=== PATIENT | female | born 1995 | race African-American/Black ===

== ENCOUNTER 2018-05-14 11:35 | Emergency (ER) | payer OTHER, SELFPAY ==
[2018-05-14 12:06] LABS: Bilirubin Negative (Negative); Blood, Urine Large (Negative); Clarity CLOUDY (Clear); Glucose, Urine (Dipstick) Negative (Negative); Leukocyte Large (Negative); Nitrite Negative (Negative); Protein, Urine (Dipstick) 30 mg/dL (Neg-Trace); Specific Gravity, Urine 1.021 (1.002-1.036); Urobilinogen 0.2 mg/dL (0.2-1.0)
[2018-05-14 12:08] LABS: Bacteria/HPF None Seen HPF (None Seen); Hyaline Casts/LPF 0-3 HYALINE CAST LPF (0-3 Hyaline); Pathc Cast-AUWi Flag 0.29 (0-2.49); Pregnancy Test - Urine (BHCG) Negative (Negative); Pregu Control Background? CLEAR/WHITE (CLR/WHITE); Pregu Control Bar Appear? YES (CONTROL BAR); RBC/HPF GREATER THAN 50-TNTC HPF (0-3); Specific Gravity 1.021 (1.002-1.036); Squamous Epithelial 0-3 HPF (0-3)
[2018-05-14] MEDS ORDERED: cefTRIAXone\\ROCEPHIN 250 MG VIAL ONE (13:12)
[2018-05-14] MEDS ORDERED: Azithromycin 250 MG TAB ONE (13:12)
[2018-05-14] MEDS ORDERED: Lidocaine 1% PF 5 ML VIAL ONE (13:13)
[2018-05-18 00:26] LABS: Chlamydia by PCR Not Detected (NotDetected); GC by PCR DETECTED (NotDetected)
== END 2018-05-14 13:34 | disposition home or self-care (01) ==
LOC: ERS 11:35
DX: N39.0 Urinary tract infection, site not specified (principal)
CPT/HCPCS: 81003; 81015; 81025; 87480; 87491; 87510; 87591; 87660; 96372; J0696; J2001

== ENCOUNTER 2018-06-03 16:15 | Emergency (ER) | payer SELFPAY ==
[2018-06-03] MEDS ORDERED: Azithromycin 250 MG TAB ONE (17:56)
[2018-06-03] MEDS ORDERED: cefTRIAXone\\ROCEPHIN 250 MG VIAL ONE (17:56)
[2018-06-03] MEDS ORDERED: Lidocaine 1% PF 5 ML VIAL ONE (17:57)
[2018-06-03 18:15] LABS: Bilirubin Negative (Negative); Blood, Urine Moderate (Negative); Clarity CLEAR (Clear); Glucose, Urine (Dipstick) Negative (Negative); Leukocyte Small (Negative); Nitrite Negative (Negative); Protein, Urine (Dipstick) Negative (Neg-Trace); Specific Gravity, Urine 1.022 (1.002-1.036); Urobilinogen 0.2 mg/dL (0.2-1.0)
[2018-06-03 18:17] LABS: Bacteria/HPF None Seen HPF (None Seen); Hyaline Casts/LPF 0-3 HYALINE CAST LPF (0-3 Hyaline); Pregnancy Test - Urine (BHCG) Negative (Negative); Pregu Control Background? CLEAR/WHITE (CLR/WHITE); Pregu Control Bar Appear? YES (CONTROL BAR); Specific Gravity 1.022 (1.002-1.036); Squamous Epithelial 0-3 HPF (0-3); WBC/HPF 0-3 HPF (0-3); Yeast-AUWi Flag 3.7 (0-25.0)
[2018-06-04 22:10] LABS: Chlamydia by PCR Not Detected (NotDetected); GC by PCR DETECTED (NotDetected)
== END 2018-06-03 18:24 | disposition home or self-care (01) ==
LOC: ERS 16:15
DX: N72 Inflammatory disease of cervix uteri (principal)
CPT/HCPCS: 81003; 81015; 81025; 87480; 87491; 87510; 87591; 87660; 96372; J0696; J2001

== ENCOUNTER 2019-08-22 09:21 | Emergency (ER) | payer SELFPAY ==
[2019-08-22 09:56] LABS: Pregnancy Test - Urine (BHCG) POSITIVE (Negative); Pregu Control Background? CLEAR/WHITE (CLR/WHITE); Pregu Control Bar Appear? YES (CONTROL BAR)
[2019-08-22 09:58] LABS: Specific Gravity 1.032 (1.002-1.036)
[2019-08-22 10:02] LABS: Bacteria/HPF None Seen HPF (None Seen); Bilirubin Negative (Negative); Blood, Urine 2+ (Negative); Clarity Clear (Clear); Glucose, Urine (Dipstick) Normal (Negative); Leukocyte 75 Leu/uL (Negative); Nitrite Negative (Negative); Protein, Urine (Dipstick) 30 mg/dL (Neg-Trace); RBC/HPF 21-50 HPF (0-3); Squamous Epithelial 0-3 HPF (0-3)
--- NOTE | 2019-08-22 11:26 | ULT ---
Limited Obstetrical Ultrasound INDICATION: Lower abdominal pelvic pain for one week TECHNIQUE: Grayscale, M-mode Doppler, color Doppler and spectral Doppler images were obtained. Marco A connolly is focused on the clinical indication. COMPARISON: No relevant prior studies available. FINDINGS: GESTATION: Number of gestations: There is a suspected intrauterine gestational sac seen within the endometrial c anal without a visible yolk sac or pole identified..The mean sac diameter was 0.52 cm Presentation: Not applicable. heart rate: Not measured The uterus measures 7.6 x 4.4 x 4.9 cm. The right measures 3.7 x 2.3 x 3 cm. Left ovary measures 2.6 x 3.3 x 2.2 cm. There is normal flow to both ovaries. There is mild free fluid in the pelvis. Small cyst is seen involving the right ovary. This measures approximately 1.9 cm. The average gestational age by ultrasound is 5 weeks and 2 dayswith estimated due date of April 21, 2020. The estimated dates by clinical data is 4 weeks and 6 dayswith estimated due date of April 24, 2020. IMPRESSION: 1. Findings consistent with early of undetermined location. There is a small suspected gest ational sac within the endometrial cavity. Findings may reflect sequela of early . Pseudogestational sac related to ectopic is not excluded. Continued clinical and sonographi c follow-up is recommended. 2. Right ovarian cyst. 3. Mild free fluid in the pelvis.
[2019-08-22 12:17] LABS: #Basophils 0.1 thou/uL (0.0-0.2); #Lymphocytes 2.5 thou/uL (1.20-3.40); #Monocytes 0.9 thou/uL (0.11-0.59); #Neutrophils 6.8 thou/uL (1.40-6.50); %Basophils 0.5 % (0.0-1.0); %Eosinophils 0.3 % (0.0-10.0); %Lymphocytes 24.6 % (21.0-51.0); %Monocytes 8.3 % (0.0-10.0); %Neutrophils 66.3 % (42.0-75.0); Hemoglobin 13.6 g/dL (12.0-16.0); Mean Corpuscular Hemoglobin 30.3 pg (27.0-31.0); Mean Corpuscular Volume 91.9 fL (78.0-98.0); Mean Platelet Volume 8.4 fL (7.4-10.4); Platelet Count 234 thou/uL (130-400); RBC Distribution Width 11.8 % (11.5-14.5); Red Blood Cell (RBC) Count 4.49 mill/uL (4.20-5.40); White Blood Cell (WBC) Count 10.2 thou/uL (4.8-10.8)
== END 2019-08-22 13:00 | disposition home or self-care (01) ==
LOC: ERS 09:21
DX: O23.41 Unspecified infection of urinary tract in pregnancy, first trimester (principal); Z3A.01 Less than 8 weeks gestation of pregnancy
CPT/HCPCS: 36415; 76856; 81003; 81015; 81025; 84702; 85025; 86900; 86901; 87480; 87491; 87510; 87591; 87660

== ENCOUNTER 2019-08-24 13:26 | Emergency (ER) | payer SELFPAY ==
[2019-08-24 14:42] LABS: #Basophils 0.1 thou/uL (0.0-0.2); #Eosinphils 0.1 thou/uL (0.0-0.7); #Lymphocytes 1.7 thou/uL (1.20-3.40); #Monocytes 0.8 thou/uL (0.11-0.59); #Neutrophils 6.2 thou/uL (1.40-6.50); %Eosinophils 0.9 % (0.0-10.0); %Lymphocytes 19.2 % (21.0-51.0); Hemoglobin 13.7 g/dL (12.0-16.0); Mean Corpuscular HGB CONC 33.8 g/dL (32.0-36.0); Mean Corpuscular Hemoglobin 30.2 pg (27.0-31.0); Mean Corpuscular Volume 89.5 fL (78.0-98.0); Mean Platelet Volume 8.2 fL (7.4-10.4); Platelet Count 253 thou/uL (130-400); RBC Distribution Width 11.5 % (11.5-14.5); Red Blood Cell (RBC) Count 4.53 mill/uL (4.20-5.40); White Blood Cell (WBC) Count 8.8 thou/uL (4.8-10.8)
--- NOTE | 2019-08-24 15:21 | ULT ---
EXAM: US Pelvic Transvag with Doppler PROVIDED CLINICAL HISTORY: Vaginal bleeding COMPARISON: 08/22/2019 FINDINGS: A yolk sac is now evident within the intrauterine fluid collection previously described, compatible w ith gestational sac. Gestational sac measurements correspond to a 5 week 1 day gestation. pole may be present but this is not certain. The right and left ovaries appear sonographically unrema rkable. Color Doppler and spectral analysis of the ovarian waveforms demonstrates flow bilaterally. No significant free pelvic fluid evident. IMPRESSION: Intrauterine gestational sac containing a yolk sac and probable early pole.
== END 2019-08-24 16:05 | disposition home or self-care (01) ==
LOC: ERS 13:26
DX: O99.89 Other specified diseases and conditions complicating pregnancy, childbirth and the puerperium (principal); R10.30 Lower abdominal pain, unspecified; Z3A.01 Less than 8 weeks gestation of pregnancy
CPT/HCPCS: 36415; 76856; 84702; 85025

== ENCOUNTER 2019-09-04 17:12 | Emergency (ER) | payer MEDICAID, OTHER ==
[2019-09-04] MEDS ORDERED: Ondansetron ODT 4 MG TAB ONE (17:32)
[2019-09-04 17:39] LABS: Bilirubin Negative (Negative); Blood, Urine Moderate (Negative); Clarity Hazy (Clear); Glucose, Urine (Dipstick) Negative (Negative); Leukocyte Small (Negative); Nitrite Negative (Negative); Protein, Urine (Dipstick) Negative (Neg-Trace)
[2019-09-04 17:45] LABS: Bacteria/HPF 1+ HPF (None Seen); Mucous/LPF 1+ LPF (<2+)
--- NOTE | 2019-09-04 18:59 | ULT ---
EXAM: Transabdominal and transvaginal pelvic ultrasound with Doppler PROVIDED CLINICAL HISTORY: COMPARISON: 08/24/2019 FINDINGS: Single live intrauterine gestation is documented with crown-rump length corresponding to a 6 weeks. 3 day gestation. Cardiac activity of 124 bpm is documented involving the pole. There is no evidence for perigestational hemorrhage. The ovaries appear sonographically unremarkable. Color Doppler and spectral analysis of the ovarian w aveforms demonstrates normal flow bilaterally. There is no evidence for significant free pelvic fluid. IMPRESSION: Single live intrauterine gestation, 6 weeks 3 days by crown-rump length.
== END 2019-09-04 19:10 | disposition home or self-care (01) ==
LOC: ERS 17:12
DX: O23.41 Unspecified infection of urinary tract in pregnancy, first trimester (principal); Z3A.11 11 weeks gestation of pregnancy
CPT/HCPCS: 36415; 76856; 81003; 81015; 84702; Q0162